=== PATIENT | female | born 2000 | race Caucasian/White ===

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

== ENCOUNTER → 2019-12-15 | Outpatient (CLI) | payer BC ==
[2019-12-15 12:12] LABS: Basophils % (A) 1 %; Eosinophils # (A) 0.1 k/uL (0-0.7); Eosinophils % (A) 1 %; HCT 46.7 % (34.0-46.0); Lymphocytes # (A) 2.5 k/uL (1.0-4.8); Lymphocytes % (A) 32 %; MCH 29.7 pg (25.0-35.0); MCHC 32.2 g/dL (31.0-37.0); MCV 92.3 fL (80.0-100.0); Monocytes # (A) 0.6 k/uL (0-1.0); Monocytes % (A) 8 %; Neutrophils # (A) 4.2 k/uL (1.3-7.7); Neutrophils % (A) 54 %; Platelet Count 222 k/uL (150-450); RBC 5.06 m/uL (3.80-5.40); RDW 12.1 % (11.5-15.5); WBC 7.7 k/uL (4.0-11.0)
[2019-12-15 22:56] LABS: African American GFR (CKD) 93.9 (60.0-200.0); Albumin 4.5 g/dL (3.80-4.90); Albumin/Globulin Ratio 1.8 (1.60-3.17); Anion Gap 13.1 mmol/L (4.00-12.00); Calcium 9.4 mg/dL (8.7-10.3); Carbon Dioxide 21.9 mmol/L (21.6-31.8); Globulin 2.5 g/dL (1.6-3.3); Total Bilirubin 0.3 mg/dL (0.3-1.2)
== END | disposition home or self-care (01) ==
LOC: LABWHC1 11:34
PROVIDERS: ATTEND Psychiatry & Neurology Neurology
DX: G25.1 Drug-induced tremor (principal); G40.B09 Juvenile myoclonic epilepsy, not intractable, without status epilepticus; Z51.81 Encounter for therapeutic drug level monitoring
CPT/HCPCS: 36415; 80053; 82306; 85025

== ENCOUNTER → 2020-03-22 | Outpatient (CLI) | payer BC ==
[2020-03-22 22:45] LABS: Basophils # (A) 0.03 X 10*3/uL (0.00-0.10); Basophils % (A) 0.5 %; Eosinophils # (A) 0.06 X 10*3/uL (0.04-0.35); Eosinophils % (A) 0.9 %; HCT 44.5 % (37.2-46.3); HGB 14.7 g/dL (12.0-15.0); Lymphocytes # (A) 3.18 X 10*3/uL (0.90-5.00); Lymphocytes % (A) 49.4 %; MCH 30.1 pg (27.0-32.0); MCV 91.2 fL (80.0-97.0); Mean Platelet Volume 10.5 fL (9.5-12.2); Monocytes % (A) 7.8 %; Neutrophils # (A) 2.65 X 10*3/uL (1.80-7.70); Neutrophils % (A) 41.1 %; Platelet Count 175 X 10*3/uL (140-440); RBC 4.88 X 10*6/uL (4.10-5.20); RDW 12.3 % (11.5-14.5); WBC 6.44 X 10*3/uL (4.50-10.00)
[2020-03-23 01:50] LABS: African American GFR (CKD) 106.7 (60.0-200.0); Albumin 4.8 g/dL (3.80-4.90); Albumin/Globulin Ratio 2.18 (1.60-3.17); Anion Gap 14.7 mmol/L (4.00-12.00); BUN/Creat Ratio 17.78 Ratio (12.00-20.00); Calcium 9.5 mg/dL (8.7-10.3); Carbon Dioxide 24.3 mmol/L (21.6-31.8); Globulin 2.2 g/dL (1.6-3.3); Potassium 3.9 mmol/L (3.5-5.5); Total Bilirubin 0.3 mg/dL (0.3-1.2)
[2020-03-23 01:58] LABS: T4, Free (Free Thyroxine) 1.3 ng/dL (0.83-1.43)
== END | disposition home or self-care (01) ==
LOC: LABWHC1 15:58
PROVIDERS: ATTEND Psychiatry & Neurology Neurology
DX: G40.909 Epilepsy, unspecified, not intractable, without status epilepticus (principal); T50.905A Adverse effect of unspecified drugs, medicaments and biological substances, initial encounter
CPT/HCPCS: 36415; 80053; 80184; 84439; 84443; 85025

== ENCOUNTER → 2021-02-20 | Outpatient (CLI) | payer BC ==
[2021-02-20 19:10] LABS: Basophils # (A) 0.02 X 10*3/uL (0.00-0.10); Basophils % (A) 0.3 %; Eosinophils # (A) 0.03 X 10*3/uL (0.04-0.35); Eosinophils % (A) 0.5 %; HCT 50.2 % (37.2-46.3); HGB 15.7 g/dL (12.0-15.0); Lymphocytes # (A) 2.71 X 10*3/uL (0.90-5.00); Lymphocytes % (A) 45.8 %; MCH 29.3 pg (27.0-32.0); MCHC 31.3 g/dL (32.0-37.0); MCV 93.7 fL (80.0-97.0); Mean Platelet Volume 10.3 fL (9.5-12.2); Monocytes # (A) 0.36 X 10*3/uL (0.20-1.00); Monocytes % (A) 6.1 %; Neutrophils # (A) 2.77 X 10*3/uL (1.80-7.70); Neutrophils % (A) 46.8 %; Platelet Count 166 X 10*3/uL (140-440); RBC 5.36 X 10*6/uL (4.10-5.20); RDW 11.9 % (11.5-14.5); WBC 5.92 X 10*3/uL (4.50-10.00)
[2021-02-21 01:26] LABS: African American GFR (CKD) 112.6 (60.0-200.0); Albumin 4.6 g/dL (3.8-4.9); Albumin/Globulin Ratio 1.71 (1.60-3.17); Anion Gap 15.7 mmol/L (10.00-18.00); BUN/Creat Ratio 17.76 Ratio (12.00-20.00); Blood Urea Nitrogen 15.2 mg/dL (9.0-27.0); Calcium 9.6 mg/dL (8.7-10.3); Carbon Dioxide 21.4 mmol/L (20.0-27.5); Globulin 2.7 g/dL (1.6-3.3); Non-African American GFR(CKD) 97.1 (60.0-200.0); Potassium 3.6 mmol/L (3.5-5.5); Total Bilirubin 0.2 mg/dL (0.30-1.20); Total Protein 7.3 g/dL (6.2-8.2)
[2021-02-21 01:41] LABS: Valproic Acid (Depakene) 69.2 ug/mL (50.0-100.0)
== END | disposition home or self-care (01) ==
LOC: LABWHC1 02-16 11:21
PROVIDERS: ATTEND Psychiatry & Neurology Neurology
DX: Z00.00 Encounter for general adult medical examination without abnormal findings (principal); Z51.81 Encounter for therapeutic drug level monitoring; G40.919 Epilepsy, unspecified, intractable, without status epilepticus
CPT/HCPCS: 36415; 80053; 80164; 85025

== ENCOUNTER 2023-05-28 16:32 | Inpatient (IN) | payer BC ==
--- NOTE | 2023-05-28 17:13 | ED ---
Psych HPI - General Chief Complaint: Psychiatric Symptoms Stated Complaint: Mental health eval Time Seen by Provider: 05/28/23 16:45 Source: patient, RN notes reviewed Mode of arrival: ambulatory - History of Present Illness Initial Comments: this is a 23 year old female with suicidal ideations. She endorses thoughts of wanting to kill herself via hanging with a belt over the last few months. Patient states that she has been very overwhelmed and anxious and recurrent thoughts arise when she returns home from work where he will self. Reports she went to her therapist this morning who recommended that she be evaluated. Patient denies previous suicidal attempts or psychiatric hospitalizations. Patient has been on Wellbutrin since November and a combined OCP over the last 6+ years. No other acute complaints at this time. - Related Data Home Medications Medication Instructions Recorded Confirmed buPROPion HCL [Wellbutrin XL] 150 mg PO DAILY 05/28/23 05/28/23 norethindrone-e.estradioL-iron 1 tab PO DAILY 05/28/23 05/28/23 [Blisovi Fe 1.5-30 Tablet] Allergies Allergy/AdvReac Type Severity Reaction Status Date / Time No Known Allergies Allergy Verified 05/28/23 18:08 Review of Systems ROS Statement: Those systems with pertinent positive or pertinent negative responses have been documented in the HPI. ROS Other: All systems not noted in ROS Statement are negative. Past Medical History Past Medical History: Seizure Disorder History of Any Multi-Drug Resistant Organisms: None Reported Past Psychological History: Anxiety Smoking Status: Never smoker Past Alcohol Use History: Occasional Past Drug Use History: None Reported General Exam Limitations: no limitations General appearance: alert, anxious Head exam: Present: atraumatic, normocephalic, normal inspection Eye exam: Present: normal appearance, PERRL, EOMI. Absent: scleral icterus, conjunctival injection, periorbital swelling ENT exam: Present: normal exam, mucous membranes moist Neck exam: Present: normal inspection. Absent: tenderness, meningismus, lymphadenopathy Respiratory exam: Present: normal lung sounds bilaterally. Absent: respiratory distress, wheezes, rales, rhonchi, stridor Cardiovascular Exam: Present: regular rate, normal rhythm, normal heart sounds. Absent: systolic murmur, diastolic murmur, rubs, gallop, clicks GI/Abdominal exam: Present: soft, normal bowel sounds. Absent: distended, tenderness, guarding, rebound, rigid Extremities exam: Present: normal inspection, full ROM, normal capillary refill. Absent: tenderness, pedal edema, joint swelling, calf tenderness Back exam: Present: normal inspection Neurological exam: Present: alert, oriented X3, CN II-XII intact Psychiatric exam: Present: normal affect, depressed, anxious, suicidal ideation Skin exam: Present: warm, dry, intact, normal color. Absent: rash Course Vital Signs 05/28/23 16:53 Temperature 98.2 F Pulse Rate 157 H Respiratory 18 Rate Blood Pressure 172/111 O2 Sat by Pulse 100 Oximetry Medical Decision Making - Medical Decision Making Was pt. sent in by a medical professional or institution (, PA, DIRECTOR OF EMAIL MARKETING, urgent care, hospital, or [facility]...) When possible be specific @ -No Did you speak to anyone other than the patient for history (EMS, parent, family, police, friend...)? What history was obtained from this source @ -No Did you review nursing and triage notes (agree or disagree)? Why? @ -I reviewed and agree with nursing and triage notes Were old charts reviewed (outside hosp., previous admission, EMS record, old EKG, old radiological studies, urgent care reports/EKG's, [facility] records)? Report findings @ -No old charts were reviewed Differential Diagnosis (chest pain, altered mental status, abdominal pain women, abdominal pain men, vaginal bleeding, weakness, fever, dyspnea, syncope, headache, dizziness, GI bleed, back pain, seizure, CVA, palpatations, mental health, musculoskeletal)? @ -Differential Mental Health Depression, anxiety, bipolar, psychosis, schizophrenia, borderline personality, situational depression, adjustment disorder, behavioral disorder, brain tumor, malingering, substance abuse, encephalopathy, medication reaction, dementia, hypothyroidism, degenerative neurologic disorder, lupus.... This is not meant to be all-inclusive list EKG interpreted by me (3pts min.). @ -none X-rays interpreted by me (1pt min.). @ -None done CT interpreted by me (1pt min.). @ -None done U/S interpreted by me (1pt. min.). @ -None done What testing was considered but not performed or refused? (CT, X-rays, U/S, labs)? Why? @ -None What meds were considered but not given or refused? Why? @ -None Did you discuss the management of the patient with other professionals (professionals i.e. , PA, DIRECTOR OF EMAIL MARKETING, lab, RT, psych nurse, social and human services assistant, reservation clerk, teacher, public records officer, case sealer)? Give summary @ -Yes, Discussed this care with EPS. Patient reveals that patient patient presents for further evaluation coping mechanisms Was smoking cessation discussed for >3mins.? @ -No Was critical care preformed (if so, how long)? @ -No Were there social determinants of health that impacted care today? How? (Homelessness, low income, unemployed, alcoholism, drug addiction, transportation, low edu. Level, literacy, decrease access to med. care, senior care, rehab)? @ -No Was there de-escalation of care discussed even if they declined (Discuss DNR or withdrawal of care, Hospice)? DNR status @ -No What co-morbidities impacted this encounter? (DM, HTN, Smoking, COPD, CAD, Cancer, CVA, ARF, Chemo, Hep., AIDS, mental health diagnosis, sleep apnea, morbid obesity)? @ -depression, suicidal ideation Was patient admitted / discharged? Hospital course, mention meds given and route, prescriptions, significant lab abnormalities, going to OR and other pertinent info. @ -23-year-old female with suicidal ideation. On discussion with patient and she endorsed feelings of SI of the past few months due to being very overwhelmed with finances, job stress, feelings of being alone. Patient denies previous suicidal attempts. Comprehensive physical examination was completed with no acute findings. EtOH negative, urine drug screen and negative. Discussed this case with EPS which recommended admission for further evaluation and treatment. Patient is agreeable to plan. Undiagnosed new problem with uncertain prognosis? @ -No Drug Therapy requiring intensive monitoring for toxicity (Heparin, Nitro, Insulin, Cardizem)? @ -No Were any procedures done? @ -No Diagnosis/symptom? @ -Suicidal ideation, depression Acute, or Chronic, or Acute on Chronic? @ -Acute Uncomplicated (without systemic symptoms) or Complicated (systemic symptoms)? @ -complicated Side effects of treatment? @ -No Exacerbation, Progression, or Severe Exacerbation? @ -No Poses a threat to life or bodily function? How? (Chest pain, USA, DC, pneumonia, PE, COPD, DKA, ARF, appy, cholecystitis, CVA, Diverticulitis, Homicidal, Suicidal, threat to staff... and all critical care pts) @ -Yes, suicidal ideations can lead to . - Lab Data Lab Results 05/28/23 05/28/23 Range/Units 17:34 17:34 Urine HCG, Qual Not Detected (Not Detectd) Urine Opiates Screen Not Detected (NotDetected) Ur Oxycodone Screen Not Detected (NotDetected) Urine Methadone Screen Not Detected (NotDetected) Ur Barbiturates Screen Not Detected (NotDetected) U Tricyclic Antidepress Not Detected (NotDetected) Ur Phencyclidine Scrn Not Detected (NotDetected) Ur Amphetamines Screen Not Detected (NotDetected) U Methamphetamines Scrn Not Detected (NotDetected) U Benzodiazepines Scrn Not Detected (NotDetected) Urine Cocaine Screen Not Detected (NotDetected) U Marijuana (THC) Screen Not Detected (NotDetected) Disposition Clinical Impression: Suicidal ideation Disposition: ADMITTED IP TO THIS [facility] Condition: Fair Is patient prescribed a controlled substance at d/c from ED?: No Referrals: Magdi Sharpe DO [Primary Care Provider] - 1-2 days
[2023-05-28 18:20] LABS: Amphetamine Screen,Urine Not Detected (NotDetected); Barbiturate Screen,Urine Not Detected (NotDetected); Benzodiazepines Screen,Urine Not Detected (NotDetected); Cocaine Screen,Urine Not Detected (NotDetected); Methadone Screen, Urine Not Detected (NotDetected); Opiate Screen,Urine Not Detected (NotDetected); Oxycodone Screen, Urine Not Detected (NotDetected); Phencyclidine Screen,Urine Not Detected (NotDetected); Tricyclic Antidepressant,Urine Not Detected (NotDetected); Urn Cannabinoid Scrn Not Detected (NotDetected)
[2023-05-29] MEDS: BLISOVI FE PO SCH (10:46)
[2023-05-29] MEDS ORDERED: ACETAMINOPHEN TAB 325 MG TAB PO PRN (12:41)
[2023-05-29] MEDS ORDERED: MAGNESIUM HYDROXIDE 2,400 MG/30 ML CUP PO PRN (12:41)
[2023-05-29] MEDS ORDERED: MAG HYDROX/AL HYDROX/SIMETH 355 ML BOTTLE PO PRN (12:41)
[2023-05-29] MEDS ORDERED: LORazepam 1 MG TAB PO PRN (12:53)
[2023-05-29] MEDS ORDERED: HALOPERIDOL LACTATE 5 MG/ML 1 ML VIAL IM PRN (12:53)
[2023-05-29] MEDS ORDERED: LORazepam 2 MG/ML INJ IM PRN (12:53)
[2023-05-29] MEDS ORDERED: haloperidoL 5 MG TAB PO PRN (12:53)
[2023-05-29 13:47] LABS: Appearance,Urine Cloudy (Clear); Bilirubin,Urine Negative (Negative); Blood,Urine Negative (Negative); Color,Urine Yellow; Glucose,Urine (UA) Negative (Negative); Ketones,Urine 2+ (Negative); Leukocyte Esterase,Urine Small (Negative); Mucus,Urine Moderate /hpf; Nitrite,Urine Negative (Negative); PH, Urine 5.5 (5.0-8.0); Protein,Urine Trace (Negative); RBC,Urine 2 /hpf (0-5); Specific Gravity,Urine 1.023 (1.001-1.035); Squamous Epithelial Cell,Urine 3 /hpf (0-4); Urobilinogen,Urine <2.0 mg/dL (<2.0); WBC,Urine 5 /hpf (0-5)
[2023-05-30] MEDS ORDERED: [UNRECOGNIZED DRUG - OTHER] PO SCH (09:00)
[2023-05-30] MEDS ORDERED: IRON PO SCH (09:00)
[2023-05-30] MEDS ORDERED: NORETHINDRONE PO SCH (09:00)
[2023-05-30] MEDS ORDERED: ETHINYL ESTRADIOL PO SCH (09:00)
[2023-05-30] MEDS: SERTRALINE 50 MG TAB PO SCH (09:47)
--- NOTE | 2023-05-30 10:19 | P.HP ---
Psychiatric H&P - . H&P Date: 05/30/23 History & Physical: Allergies Allergy/AdvReac Type Severity Reaction Status Date / Time No Known Allergies Allergy Verified 05/28/23 18:08 Vital Signs Temp 98.1 F 05/29/23 13:47 Pulse 122 H 05/29/23 13:47 Resp 16 05/29/23 13:47 BP 144/92 05/29/23 13:47 Pulse Ox 99 05/29/23 13:47 FiO2 Intake & Output 05/29/23 05/30/23 05/30/23 18:59 06:59 18:59 Weight 67.84 kg Laboratory Last Values Urine Color Yellow 05/29/23 12:56 Urine Appearance Cloudy (Clear) H 05/29/23 12:56 Urine pH 5.5 (5.0-8.0) 05/29/23 12:56 Ur Specific [place] 1.023 (1.001-1.035) 05/29/23 12:56 Urine Protein Trace (Negative) H 05/29/23 12:56 Urine Glucose (UA) Negative (Negative) 05/29/23 12:56 Urine Ketones 2+ (Negative) H 05/29/23 12:56 Urine Blood Negative (Negative) 05/29/23 12:56 Urine Nitrite Negative (Negative) 05/29/23 12:56 Urine Bilirubin Negative (Negative) 05/29/23 12:56 Urine Urobilinogen <2.0 mg/dL (<2.0) 05/29/23 12:56 Ur Leukocyte Esterase Small (Negative) H 05/29/23 12:56 Urine RBC 2 /hpf (0-5) 05/29/23 12:56 Urine WBC 5 /hpf (0-5) 05/29/23 12:56 Ur Squamous Epith Cells 3 /hpf (0-4) 05/29/23 12:56 Urine Mucus Moderate /hpf (None) H 05/29/23 12:56 Urine HCG, Qual Not Detected (Not Detectd) 05/28/23 17:34 Urine Opiates Screen Not Detected (NotDetected) 05/28/23 17:34 Ur Oxycodone Screen Not Detected (NotDetected) 05/28/23 17:34 Urine Methadone Screen Not Detected (NotDetected) 05/28/23 17:34 Ur Barbiturates Screen Not Detected (NotDetected) 05/28/23 17:34 U Tricyclic Antidepress Not Detected (NotDetected) 05/28/23 17:34 Ur Phencyclidine Scrn Not Detected (NotDetected) 05/28/23 17:34 Ur Amphetamines Screen Not Detected (NotDetected) 05/28/23 17:34 U Methamphetamines Scrn Not Detected (NotDetected) 05/28/23 17:34 U Benzodiazepines Scrn Not Detected (NotDetected) 05/28/23 17:34 Urine Cocaine Screen Not Detected (NotDetected) 05/28/23 17:34 U Marijuana (THC) Screen Not Detected (NotDetected) 05/28/23 17:34 SARS-CoV-2 (PCR) Not Detected (Not Detectd) 05/29/23 01:28 05/30/23 07:26 IDENTIFYING DATA: Patient is a 23-year-old female.Single. Lives alone in an apartment. No children. Works at a factory. HPI: Patient presented to the hospital on 05/27. As per EPS note, " pt presents with tearful affect and tone is soft. pt reports that she has been experiencing intermittent SI for the past couple of months, but that it has worsened significantly in the past two weeks. pt states that the past two weeks is has been "constant" and that she spends all day thinking about suicide. pt reports that she is afraid to go home because she lives alone and is scared that she will act on these thoughts even though she does not want to do so. pt states that she is unsure if she has a plan, but does admit that she has thought about hanging herself with a belt when asked if she had thought of how she would do this. pt reports that she has been getting about 2 - 3 hours of sleep per night for the past several weeks and that she has not had an appetite for the past 3 days. pt states that she had "a couple of snacks" yesterday and ate only some ramen noodles today. pt reports that she made an appointment with her psychologist and saw the psychologist today. pt states that her provider recommended that she come to the hospital. pt [place] Dr. Adriana Reed PsyD, LP [place] [facility] [place] denies HI and hallucinations. No delusional thoughts verbalized. pt cooperative with assessment." Today, patient claims she is just stressed with life...bills, money, work, etc. "Life is overwhelming" Also just found out that her ex cheated on her when they were together. They broke up between and . Patient states that she gets very sandoval around her menstrual cycle. States she gets irritated easily. All day, everyday, she feels anxious. She currently has no thoughts of hurting herself. She states she does not sleep well at home, she claims she is a light sleeper, and does not get good, solid rest. Patient states that she does not like being on the unit, and that it was not like she had pictured it. She states that she is not comfortable not being able to come and go, and do what she wants. Chair Inspector explained to her that we can not safely discharge her, due to her constant, increasing thoughts of suicidal ideations. Patient denies any suicidal or homicidal ideations intent or plan. At this time patient denies any auditory or visual hallucinations. Patient denies any flight of ideas racing thoughts and increased in goal directed behavior. Patients UDS was negative. Claims she drinks rarely. PAST PSYCHIATRIC HISTORY: Patient states that she attends counseling [facility] [place] Patient denies being on any psychiatric medications. Patient denies any previous psychiatric hospitalizations. Patient denies any history of suicide attempts in the past. PMH:As per ER note ALLERGIES: as per EMR CHEMICAL DEPENDENCY HISTORY: as per HPI FAMILY PSYCHIATRIC/SUBSTANCE USE HISTORY: mom and aunts bipolar, major depression SOCIAL HISTORY: Patient was born and raised in [place], [place]. High school graduate, some college. Lives alone in an apartment, single, has no children. Works in a factory. Denies legal issues. MENTAL STATUS EXAM: General Appearance: Patient appears to be stated age, is alert, directable, and attempts to cooperate. Patient appears to have good hygiene and grooming. Behavior: Patient is seated without any agitated behavior. Patient focused on discharge. Speech: Patient's speech is fluent and nonpressured. Mood/Affect: Patient reports their mood is depressed, affect is congruent and constricted. Suicidality/Homicidality: Patient denies having any homicidal ideation intent or plan. Denies any suicidal ideations intent or plan Perceptions: Patient denies any visual hallucinations and denies any auditory hallucinations Though content/process: There is no evidence of any delusional thought content and thought process is linear and goal-directed. Memory and concentration: AOX3, grossly intact for the purposes of this session. Can spell "WORLD" backwards Judgment and insight: poor STRENGTHS/WEAKNESSES: strength is that patient is resilient. Weakness is that patient has poor judgment and is impulsive INTELLECT: average IMPRESSIONS: major depressive disorder, without psychotic features anxiety disorder, unspecified suicidal ideations PLAN: -Patient is admitted under voluntary status to MHU for stabilization of psychiatric symptoms and safety. Patient has signed adult voluntary form and medication consent and is placed in patient's chart. -Medications : Will start patient on Zoloft 50mg daily for depression/anxiety, trazodone 50mg qhs for sleep/depression -Ativan and Haldol PRN for agitation/aggression -Patient was informed of the risks, benefits and side effects of the medication and patient verbally consented to taking the medications. -Internal Medicine consult to perform medical evaluation and physical. -NRT -nonsmoker -SW on board for discharge planning. Encourage patient to participate in groups to work on coping skills.
--- NOTE | 2023-05-30 15:23 | P.HPIM ---
History of Present Illness H&P Date: 05/30/23 Chief Complaint: Suicidal ideation This is a 23-year-old well-groomed female with past medical history significant for anxiety, occasional alcohol use, seizure disorder follows with a therapist. Reports on Saturday she saw her therapist and expressed to her that she was overw helmed, having suicidal ideations over the last 2 weeks and therapist recommended that she proceed directly to the ER. Reports she has had no appetite over the last couple of days and is sleep deprived. She presents teary-eyed and expresses that she is " pissed off and does not like being on this unit. Patient did not go into any detail.Hypertensive and tachycardic on admission, subsided. Reports she has been compliant with Wellbutrin. Patient lives alone. Denies chest pain, palpitations or shortness of breath. Denies lightheadedness dizziness or focal deficits. Requesting to not have her labs drawn, due to her fear of needles and she recently had her labs drawn outpatient at PCPs office.Per medicine, patient does not need any further lab draws, unless Dr. Johansen requests them.EtOH negative, urine drug screen and negative. Review of Systems ROS Statement: Those systems with pertinent positive or pertinent negative responses have been documented in the HPI. ROS Other: All systems not noted in ROS Statement are negative. Past Medical History Past Medical History: Seizure Disorder History of Any Multi-Drug Resistant Organisms: None Reported Past Psychological History: Anxiety Smoking Status: Never smoker Past Alcohol Use History: Occasional Past Drug Use History: None Reported Medications and Allergies Home Medications Medication Instructions Recorded Confirmed Type buPROPion HCL [Wellbutrin XL] 150 mg PO DAILY 05/28/23 05/28/23 History norethindrone-e.estradioL-iron 1 tab PO DAILY 05/28/23 05/28/23 History [Blisovi Fe 1.5-30 Tablet] Allergies Allergy/AdvReac Type Severity Reaction Status Date / Time No Known Allergies Allergy Verified 05/28/23 18:08 Physical Exam PHYSICAL EXAM: VITAL SIGNS: [As above] GENERAL: Well-groomed, young female, alert and oriented x 3, cooperative, pleasant, tearful. HEENT: Normocephalic, conjunctivae normal. eyes normal. NECK: Supple, no JVD. No thyroid enlargement. No LNs CARDIOVASCULAR: S1, S2 regular.. No murmur RESPIRATION: Unlabored, equal air entry, clear to auscultation. ABDOMEN: Soft, nondistended, nontender . No guarding. no masses palpable. No ascites, No hepatosplenomegaly.Bowel sounds heard. LEGS: No edema. no swelling NERVOUS SYSTEM: Cranial N 2-12 grossly normal. Moves all 4 limbs. No focal deficits. Strength and sensation grossly intact. Skin: Warm and dry, no rash Assessment and Plan Assessment: Suicidal ideation Depression Anxiety Sleep deprivation Plan: Continue on current medication using ,monitoring and symptomatic treatment. IP MHU management as per psychiatry .please do not hesitate to call if any further medical concerns. The impression and plan of care has been dictated as directed. : I performed a history and examination of this patient, discussed the same with the dictator. I agree with the dictator's note ,documented as a scribe. Any additional findings or plans will be noted.
[2023-05-30] MEDS: traZODone HCL 50 MG TAB PO SCH (20:25)
--- NOTE | 2023-05-31 14:07 | P.PN ---
Progress Note - Text Progress Note Date: 05/31/23 Interval history: Patient was seen relaxing in the TV lounge with peers and was directable and agreeable to speak with administrative underwriter. She reports good mood, improving appetite, and reports feeling calmer since starting the Zoloft. She is taking Trazodone 50 mg QHS for sleep and reports feeling oversedated the next morning so we discussed decreasing the dose. At this time, patient denies any suicidal or homicidal ideation, intent or plan. Denies any auditory or visual hallucinations. Patient has been compliant with meds. Mental status exam: General Appearance: Patient appears to be stated age, average hygiene. Behavior: No agitated behavior. Patient is calm and directable. Speech: Patient's speech is fluent and non-pressured. Mood/Affect: Mood is improving mildly, affect is congruent and constricted. Suicidality/Homicidality: Patient denies having any suicidal or homicidal ideation intent or plan. Perceptions: Patient denies any auditory or visual hallucinations. Though content/process: There is no evidence of any delusional thought content and thought process is linear and goal-directed. Memory and concentration: AOX3, grossly intact for the purposes of this session Judgment and insight: Improving mildly Assessment/Plan: Continue with current diagnosis. Patient continues to meet criteria for inpatient psychiatric admission for symptom stabilization and safety. Decrease Trazodone to 25 mg QHS for sleep, due to daytime sedation. Monitor for medication compliance and for any psychotropic medication side effects. Will continue to monitor ongoing response to treatment. Encouraged participation in milieu.
[2023-05-31] MEDS: traZODone HCL 50 MG TAB PO SCH (20:33)
[2023-06-01] MEDS ORDERED: traZODone HCL 50 MG TAB PO PRN (21:18)
[2023-06-02 08:42] VITALS: RESP 18; TEMP 97.4
--- NOTE | 2023-06-02 18:38 | P.PN ---
Progress Note - Text Progress Note Date: 06/01/23 Interval history: Patient was seen relaxing in the TV lounge with peers and was directable and agreeable to speak with tech writer. She reports good mood and sleep, reports improving appetite. She denies any concerns today. At this time, patient denies any suicidal or homicidal ideation, intent or plan. Denies any auditory or visual hallucinations. Patient has been compliant with meds. She is hopeful for discharge on Saturday. Mental status exam: General Appearance: Patient appears to be stated age, average hygiene. Behavior: No agitated behavior. Patient is calm and directable. Speech: Patient's speech is fluent and non-pressured. Mood/Affect: Mood is improving mildly, affect is congruent and constricted. Suicidality/Homicidality: Patient denies having any suicidal or homicidal ideation intent or plan. Perceptions: Patient denies any auditory or visual hallucinations. Though content/process: There is no evidence of any delusional thought content and thought process is linear and goal-directed. Memory and concentration: AOX3, grossly intact for the purposes of this session Judgment and insight: Improving mildly Assessment/Plan: Continue with current diagnosis. Patient continues to meet criteria for inpatient psychiatric admission for symptom stabilization and safety. Adjust Trazodone to 25 mg QHS PRN for sleep. Monitor for medication compliance and for any psychotropic medication side effects. Will continue to monitor ongoing response to treatment. Encouraged participation in milieu.
--- NOTE | 2023-06-02 18:42 | P.PN ---
Progress Note - Text Progress Note Date: 06/02/23 Interval history: Patient was seen asleep in her room, and was directable and agreeable to speak with typewriter assembly and parts inspector. She reports good mood, but reports feeling sleepy today. She took the Trazodone 25 mg QHS yesterday and today states she will try sleeping without the Trazodone tonight because she likely doesn't need it every night. She denies any concerns today. At this time, patient denies any suicidal or homicidal ideation, intent or plan. Denies any auditory or visual hallucinations. Patient has been compliant with meds. She is hopeful for discharge on Saturday. Mental status exam: General Appearance: Patient appears to be stated age, average hygiene. Behavior: No agitated behavior. Patient is calm and directable. Speech: Patient's speech is fluent and non-pressured. Mood/Affect: Mood is improving mildly, affect is congruent and constricted. Suicidality/Homicidality: Patient denies having any suicidal or homicidal ideation intent or plan. Perceptions: Patient denies any auditory or visual hallucinations. Though content/process: There is no evidence of any delusional thought content and thought process is linear and goal-directed. Memory and concentration: AOX3, grossly intact for the purposes of this session Judgment and insight: Improving mildly Assessment/Plan: Continue with current diagnosis. Patient continues to meet criteria for inpatient psychiatric admission for symptom stabilization and safety. Medications will be continued at current doses. Monitor for medication compliance and for any psychotropic medication side effects. Will continue to monitor ongoing response to treatment. Encouraged participation in milieu.
[2023-06-03 09:06] VITALS: BP 122/57; PULSE 96
--- NOTE | 2023-06-03 20:26 | P.DS ---
Providers Date of admission: 05/29/23 12:37 Expected date of discharge: 06/03/23 Attending physician: Rich Johansen MD Consults: 05/29/23 12:41 Consult Physician Routine Consulting Provider: Magdi Sharpe Consult Reason/Comments: H&P Do you want consulting provider notified?: Yes Primary care physician: Magdi Sharpe [facility] Course: Admission HPI: Admission note was completed by Dr. Johansen: "[DENTIFYING DATA: Patient is a 23-year-old female.Single. Lives alone in an apartment. No children. Works at a factory. HPI: Patient presented to the hospital on 05/27. As per EPS note, " pt presents with tearful affect and tone is soft. pt reports that she has been experiencing intermittent SI for the past couple of months, but that it has worsened significantly in the past two weeks. pt states that the past two weeks is has been "constant" and that she spends all day thinking about suicide. pt reports that she is afraid to go home because she lives alone and is scared that she will act on these thoughts even though she does not want to do so. pt states that she is unsure if she has a plan, but does admit that she has thought about hanging herself with a belt when asked if she had thought of how she would do this. pt reports that she has been getting about 2 - 3 hours of sleep per night for the past several weeks and that she has not had an appetite for the past 3 days. pt states that she had "a couple of snacks" yesterday and ate only some ramen noodles today. pt reports that she made an appointment with her psychologist and saw the psychologist today. pt states that her provider recommended that she come to the hospital. pt sees Dr. Adriana Reed PsyD, LP at [facility]. pt denies HI and hallucinations. No delusional thoughts verbalized. pt cooperative with assessment." Today, patient claims she is just stressed with life...bills, money, work, etc. "Life is overwhelming" Also just found out that her ex cheated on her when they were together. They broke up between Um[place] and . Patient states that she gets very sandoval around her menstrual cycle. States she gets irritated easily. All day, everyday, she feels anxious. She currently has no thoughts of hurting herself. She states she does not sleep well at home, she claims she is a light sleeper, and does not get good, solid rest. Patient states that she does not like being on the unit, and that it was not like she had pictured it. She states that she is not comfortable not being able to come and go, and do what she wants. Sleep Manager explained to her that we can not safely discharge her, due to her constant, increasing thoughts of suicidal ideations. Patient denies any suicidal or homicidal ideations intent or plan. At this time patient denies any auditory or visual hallucinations. Patient denies any flight of ideas racing thoughts and increased in goal directed behavior. Patients UDS was negative. Claims she drinks rarely. PAST PSYCHIATRIC HISTORY: Patient states that [place] [facility] [place] denies being on any psychiatric medications. Patient denies any previous psychiatric hospitalizations. Patient denies any history of suicide attempts in the past. PMH:As per ER note ALLERGIES: as per EMR CHEMICAL DEPENDENCY HISTORY: as per HPI FAMILY PSYCHIATRIC/SUBSTANCE USE HISTORY: mom and aunts bipolar, major depression SOCIAL HISTORY: Patient was born and raised in [place], [place]. High school graduate, some college. Lives alone in an apartment, single, has no children. Works in a factory. Denies legal issues. MENTAL STATUS EXAM: General Appearance: Patient appears to be stated age, is alert, directable, and attempts to cooperate. Patient appears to have good hygiene and grooming. Behavior: Patient is seated without any agitated behavior. Patient focused on discharge. Speech: Patient's speech is fluent and nonpressured. Mood/Affect: Patient reports their mood is depressed, affect is congruent and constricted. Suicidality/Homicidality: Patient denies having any homicidal ideation intent or plan. Denies any suicidal ideations intent or plan Perceptions: Patient denies any visual hallucinations and denies any auditory hallucinations Though content/process: There is no evidence of any delusional thought content and thought process is linear and goal-directed. Memory and concentration: AOX3, grossly intact for the purposes of this session. Can spell "WORLD" backwards Judgment and insight: poor STRENGTHS/WEAKNESSES: strength is that patient is resilient. Weakness is that patient has poor judgment and is impulsive INTELLECT: average IMPRESSIONS: major depressive disorder, without psychotic features anxiety disorder, unspecified suicidal ideations PLAN: -Patient is admitted under voluntary status to MHU for stabilization of psychiatric symptoms and safety. Patient has signed adult voluntary form and medication consent and is placed in patient's chart. -Medications : Will start patient on Zoloft 50mg daily for depression/anxiety, trazodone 50mg qhs for sleep/depression -Ativan and Haldol PRN for agitation/aggression -Patient was informed of the risks, benefits and side effects of the medication and patient verbally consented to taking the medications. -Internal Medicine consult to perform medical evaluation and physical. -NRT -nonsmoker -SW on board for discharge planning. Encourage patient to participate in groups to work on coping skills. ]" Hospital course: Upon admission to the unit patient was directable and agreeable to commence treatment and signed adult voluntary form. Patient got along well with other patients on the unit and followed unit protocol. Patient was compliant with the medications and denied any side effects throughout hospital course. Patient was started on Zoloft 50 mg daily and Trazodone 50 mg QHS. She found the Trazodone 50 mg QHS to be oversedating so this was adjusted to 25 mg QHS PRN for sleep. Patient spoke of her stressors and engaged in therapy both group and individual. Patient was also seen by medical team for history and physical exam. Throughout the course of the hospitalization patient gradually improved with regards to mood, anxiety, sleep and became more future oriented with improved insight and judgment. On the day of discharge patient denied any suicidal or homicidal ideation, intent or plan denied any auditory or visual hallucinations. Patient endorsed wanting to live for her health and family. The patient denied any access to guns or weapons. Patient denied any paranoia and did not endorse any delusions. Patient does not have a significant history of substance abuse. Patient was also counseled on the medications and need for regular compliance and was encouraged to follow-up with their outpatient appointment for mental health and also for primary care. Prior to discharge a family meeting will be arranged by social work administrator to answer any questions and ensure safety upon discharge. Mental status exam: General Appearance: Patient appears to be stated age, good hygiene. Behavior: No agitated behavior. Patient is calm and directable. Speech: Patient's speech is fluent and non-pressured. Mood/Affect: Mood is good, affect is congruent and constricted. Suicidality/Homicidality: Patient denies having any suicidal or homicidal ideation intent or plan. Perceptions: Patient denies any auditory or visual hallucinations. Though content/process: There is no evidence of any delusional thought content and thought process is linear and goal-directed. Memory and concentration: AOX3, grossly intact for the purposes of this session Judgment and insight: Improved with guarded prognosis Impression: Major depressive disorder, without psychotic features Anxiety disorder, unspecified Plan: -Continue with discharge today as patient has improved and stabilized psychiatrically and is not currently an imminent threat to herself and/or others. Patient will remain at chronically elevated risk for harm to self and/or others due to her impulsivity. -Continue medications: Zoloft 50 mg daily and Trazodone 25 mg QHS PRN for sleep. -Patient was counseled on the need for medication compliance and appropriate follow-up at mental health and also primary care for medical issues. Patient verbalized understanding and agreed. -Social work to arrange for and conduct family meeting to ensure safety upon discharge and answer any questions/concerns. Social work also to arrange for patients follow up appointments for psychiatric care along with follow up with primary care provider. -Patient counseled on abstaining from recreational drugs and marijuana and alcohol. Was informed/educated on the adverse effects on their physical and mental health. -Patient was instructed to return to the hospital or seek immediate medical care if their psychiatric or medical symptoms do worsen or reoccur. Laboratory Results Urine Color Yellow 05/29/23 12:56 Urine Appearance Cloudy (Clear) H 05/29/23 12:56 Urine pH 5.5 (5.0-8.0) 05/29/23 12:56 Ur Specific [place] 1.023 (1.001-1.035) 05/29/23 12:56 Urine Protein Trace (Negative) H 05/29/23 12:56 Urine Glucose (UA) Negative (Negative) 05/29/23 12:56 Urine Ketones 2+ (Negative) H 05/29/23 12:56 Urine Blood Negative (Negative) 05/29/23 12:56 Urine Nitrite Negative (Negative) 05/29/23 12:56 Urine Bilirubin Negative (Negative) 05/29/23 12:56 Urine Urobilinogen <2.0 mg/dL (<2.0) 05/29/23 12:56 Ur Leukocyte Esterase Small (Negative) H 05/29/23 12:56 Urine RBC 2 /hpf (0-5) 05/29/23 12:56 Urine WBC 5 /hpf (0-5) 05/29/23 12:56 Ur Squamous Epith Cells 3 /hpf (0-4) 05/29/23 12:56 Urine Mucus Moderate /hpf (None) H 05/29/23 12:56 Urine HCG, Qual Not Detected (Not Detectd) 05/28/23 17:34 Urine Opiates Screen Not Detected (NotDetected) 05/28/23 17:34 Ur Oxycodone Screen Not Detected (NotDetected) 05/28/23 17:34 Urine Methadone Screen Not Detected (NotDetected) 05/28/23 17:34 Ur Barbiturates Screen Not Detected (NotDetected) 05/28/23 17:34 U Tricyclic Antidepress Not Detected (NotDetected) 05/28/23 17:34 Ur Phencyclidine Scrn Not Detected (NotDetected) 05/28/23 17:34 Ur Amphetamines Screen Not Detected (NotDetected) 05/28/23 17:34 U Methamphetamines Scrn Not Detected (NotDetected) 05/28/23 17:34 U Benzodiazepines Scrn Not Detected (NotDetected) 05/28/23 17:34 Urine Cocaine Screen Not Detected (NotDetected) 05/28/23 17:34 U Marijuana (THC) Screen Not Detected (NotDetected) 05/28/23 17:34 SARS-CoV-2 (PCR) Not Detected (Not Detectd) 05/29/23 01:28 Vital Signs (72 hours) 06/01/23 06/01/23 06/02/23 06:58 20:44 08:15 Temperature 98.1 F 97.4 F L Pulse Rate [ 97 93 99 Left] Respiratory 16 18 Rate Blood Pressure 98/53 131/74 120/61 [Right Arm] O2 Sat by Pulse 99 Oximetry 06/03/23 08:31 Temperature Pulse Rate [ 96 Left] Respiratory Rate Blood Pressure 122/57 [Right Arm] O2 Sat by Pulse Oximetry Patient Condition at Discharge: Good Plan - Discharge Summary Discharge Rx Participant: No New Discharge Prescriptions: New traZODone HCL [Desyrel] 25 mg PO HS PRN 30 Days #15 tab PRN Reason: Insomnia Sertraline [Zoloft] 50 mg PO DAILY 30 Days #30 tab Continue norethindrone-e.estradioL-iron [Blisovi Fe 1.5-30 Tablet] 1 tab PO DAILY Discontinued buPROPion HCL [Wellbutrin XL] 150 mg PO DAILY Discharge Medication List norethindrone-e.estradioL-iron [Blisovi Fe 1.5-30 Tablet] 1 tab PO DAILY 05/28/23 [History] Sertraline [Zoloft] 50 mg PO DAILY 30 Days #30 tab 06/03/23 [Rx] traZODone HCL [Desyrel] 25 mg PO HS PRN 30 Days #15 tab 06/03/23 [Rx] Follow up Appointment(s)/Referral(s): [facility] [Outside] - 06/05/23 1:00 pm (Dr Reed ) Magdi Sharpe DO [Primary Care Provider] - 1-2 days Patient Instructions/Handouts: Depression (DC) Activity/Diet/Wound Care/Special Instructions: Avoid the use of street drugs and alcohol. Take all medications as prescribed. When you are in need of refills on your medications, please contact your medical provider and/or outpatient psychiatrist/provider to have this done. Please go to your scheduled outpatient appointment for aftercare treatment. If symptoms return or become worse, call the crisis line at and/or go to the nearest emergency room for evaluation. National Suicide Hotline 988. Discharge Disposition: HOME SELF-CARE
== END 2023-06-03 13:32 | disposition home or self-care (01) | DRG 881 ==
LOC: EC 16:32 → 3MHU 05-29 12:37
PROVIDERS: ADMIT Psychiatry & Neurology Psychiatry; ATTEND Psychiatry & Neurology Psychiatry
DX: F32.9 Major depressive disorder, single episode, unspecified (principal); R45.851 Suicidal ideations; F41.9 Anxiety disorder, unspecified; G40.909 Epilepsy, unspecified, not intractable, without status epilepticus; Z72.820 Sleep deprivation; Z79.899 Other long term (current) drug therapy; Z81.8 Family history of other mental and behavioral disorders; Z11.52 Encounter for screening for COVID-19
CPT/HCPCS: 80306; 81001; 81025; 82075; 87635; 99285